=== PATIENT | male | born 1945 | race Caucasian/White ===

== ENCOUNTER 2019-06-25 07:15 | Day surgery (SDC) | payer OTHER, MEDICAID ==
[~2019-06-25] VITALS: Ht 170.2 cm; Wt 84.8 kg
[2019-06-25 08:04] VITALS: BP 117/55
[2019-06-25 15:57] VITALS: BP 122/69
== END 2019-06-25 15:30 | disposition home or self-care (01) ==
LOC: DS 07:15 → OR 10:30 → DS 15:30
DX: M24.562 Contracture, left knee (principal); E66.3 Overweight; N40.0 Benign prostatic hyperplasia without lower urinary tract symptoms; Z68.29 Body mass index [BMI] 29.0-29.9, adult; Z96.652 Presence of left artificial knee joint; Z79.899 Other long term (current) drug therapy; E78.00 Pure hypercholesterolemia, unspecified; Z85.46 Personal history of malignant neoplasm of prostate; Z98.49 Cataract extraction status, unspecified eye; Z98.890 Other specified postprocedural states
CPT/HCPCS: J1170; J2704; J7120